=== PATIENT | male | born 1960 | race Two or more races ===

== ENCOUNTER 2018-09-11 10:42 | Emergency (ER) | payer OTHER ==
[~2018-09-11] VITALS: Ht 139.7 cm; Wt 84.4 kg
== END 2018-09-11 12:20 | disposition home or self-care (01) ==
LOC: ER 10:42
DX: T15.12XA Foreign body in conjunctival sac, left eye, initial encounter (principal)

== ENCOUNTER 2019-09-28 07:15 | Inpatient (IN) | payer OTHER ==
[~2019-09-28] VITALS: Ht 170.2 cm; Wt 111.1 kg
[2019-10-07] MEDS ORDERED: ELIQUIS2.5 MG PO (15:35)
[2019-10-07] MEDS ORDERED: INTEGRA F CAPS1 EACH PO (15:35)
== END 2019-10-07 21:38 | DRG 470 ==
LOC: ADM 07:15 → EDSTATUS 07:15 → SURH 10-05 05:45 → O/R 10-05 05:45 → SURH 10-05 18:34
PROVIDERS: ADMIT Orthopaedic Surgery; ATTEND Orthopaedic Surgery
PROC: 0MNP0ZZ Release Left Knee Bursa and Ligament, Open Approach (ICD-10-PCS; 2019-10-05)
PROC: 0SRD0J9 Replacement of Left Knee Joint with Synthetic Substitute, Cemented, Open Approach (ICD-10-PCS; principal; 2019-10-05 09:45)
DX: M17.12 Unilateral primary osteoarthritis, left knee (principal); M22.12 Recurrent subluxation of patella, left knee

== ENCOUNTER 2023-10-21 07:45 | Inpatient (IN) | payer OTHER ==
[~2023-10-21] VITALS: Ht 172.7 cm; Wt 103.4 kg
[~2023-10-21 07:45] MED LIST: ELIQUIS2.5 MG PO; INTEGRA F CAPS1 EACH PO
[2023-10-21] MEDS ORDERED: ZESTRIL20 MG PO (09:04)
[2023-10-21 09:16] LABS: URINE APPEARANCE Clear; URINE BILIRRUBIN Negative (NEGATIVE); URINE BLOOD Negative; URINE COLOR Orange; URINE GLUCOSE Negative (NEGATIVE); URINE KETONE Negative (NEGATIVE); URINE LEUKOCYTE Trace; URINE NITRATE Negative; URINE PROTEIN Negative (NEGATIVE)
[2023-10-21 09:21] LABS: URINE BACTERIA 36.5 uL (0.0-1933); URINE EPITHELIAL CELLS 2.1 uL (0.0-38.8)
[2023-10-21 09:28] LABS: HEMATOCRIT 45.8 % (39.0-48.0); HEMOGLOBIN 15.2 g/dL (13-16.00); MEAN CORPUSCULAR HEMOGLOBIN 33.5 pg (27.00-32.0); MEAN CORPUSCULAR HGB CONC 33.2 g/dl (32.0-36.0); RED BLOOD COUNT 4.53 M/uL (4.00-6.00); RED CELL DISTRIBUTION WIDTH 13.8 % (11.5-14.5)
[2023-10-21 09:30] LABS: URINE RBC 0.7 uL (0.0-20.8)
[2023-10-21 09:45] LABS: PLATELET COUNT 125 K/uL (150-450)
[2023-10-21 10:19] LABS: INR 0.99; PARTIAL THROMBOPLASTIN TIME 27.1 SECONDS (22.0-34.0); PROTHROMBIN TIME 10.8 SECONDS (9.0-11.5)
[2023-10-21 10:29] LABS: ALBUMIN 3.5 gm/dL (3.4-5.0); BILIRUBIN TOTAL 0.92 mg/dL (0.3-1.2); CALCIUM 9.2 mg/dL (8.5-10.1); CHOL HDL RATIO 2.8 (0-5.0); CREATININE SERUM 1.02 mg/dL (0.70-1.30); GLOBULINA 3.2 G/DL (2.4-3.5); POTASSIUM 4.23 mEq/L (3.5-5.1); TOTAL PROTEIN 6.7 gm/dL (6.4-8.2)
[2023-10-28] MEDS ORDERED: VANCOMYCIN HCL 1,000 MG VIAL IV ONE (12:30)
[2023-10-28] MEDS ORDERED: MORPHINE SULFATE 4 MG/ML VIAL IV ONE (12:30)
[2023-10-28] MEDS ORDERED: LIDOCAINE HCL 1%/EPINEPHRINE 20ML VIAL IJ ONE (12:30)
[2023-10-28] MEDS ORDERED: KETOROLAC TROMETHAMINE 60 MG VIAL IM ONE (12:30)
[2023-10-28] MEDS ORDERED: TRANEXAMIC ACID 100MG/1ML (1000MG) AMPUL IV ONE (12:30)
[2023-10-28] MEDS ORDERED: BUPIVACAINE HCL/PF 0.25% 30ML VIAL InF ONE (12:30)
[2023-10-28] MEDS ORDERED: SODIUM CHLORIDE 0.45 % 1,000 ML IV SCH (13:15)
[2023-10-28] MEDS ORDERED: ONDANSETRON HCL 2 MG/ML VIAL IV PRN (13:15)
[2023-10-28] MEDS ORDERED: OxyCODONE HCL 5 MG TABLET (ROXICODONE) PO PRN (13:15)
[2023-10-28] MEDS ORDERED: MORPHINE SULFATE 4 MG/ML CARTRIDGE IV PRN (13:15)
[2023-10-28] MEDS ORDERED: GABAPENTIN 300 MG CAPSULE PO SCH (17:00)
[2023-10-28 17:43] VITALS: BP 102/71; O2SAT 98
[2023-10-28] MEDS ORDERED: ACETAMINOPHEN 500 MG GEL..CAP PO SCH (18:00)
[2023-10-28] MEDS ORDERED: VANCOMYCIN HCL 1,000 MG in 0.9 % SODIUM CHLORIDE 250 ML IV SCH (21:00)
[2023-10-29 00:42] VITALS: BP 151/83; O2SAT 100
[2023-10-29 02:34] VITALS: BP 137/68
[2023-10-29] MEDS ORDERED: CIPRO500 MG PO (07:29)
[2023-10-29] MEDS ORDERED: PERCOCET 5-3251 EACH PO (07:29)
[2023-10-29] MEDS ORDERED: ELIQUIS2.5 MG PO (07:29)
[2023-10-29 07:45] LABS: HEMATOCRIT 42.3 % (39.0-48.0); HEMOGLOBIN 14.3 g/dL (13-16.00); MEAN CELL VOLUME 101.3 fL (80.0-100.00); MEAN CORPUSCULAR HEMOGLOBIN 34.2 pg (27.00-32.0); MEAN CORPUSCULAR HGB CONC 33.8 g/dl (32.0-36.0); RED BLOOD COUNT 4.18 M/uL (4.00-6.00); RED CELL DISTRIBUTION WIDTH 13.2 % (11.5-14.5)
[2023-10-29 08:21] LABS: PLATELET COUNT 106 K/uL (150-450)
[2023-10-29] MEDS ORDERED: SENNOSIDES 1 TAB TABLET PO SCH (09:00)
[2023-10-29] MEDS ORDERED: APIXABAN 2.5 MG TABLET PO SCH (09:00)
[2023-10-29 09:50] VITALS: BP 158/97; O2SAT 90
[2023-10-29 12:13] LABS: ALBUMIN 3.1 gm/dL (3.4-5.0); BILIRUBIN TOTAL 1.45 mg/dL (0.3-1.2); CALCIUM 8.3 mg/dL (8.5-10.1); CREATININE SERUM 1.18 mg/dL (0.70-1.30); GFR 62.55; GLOBULINA 3.1 G/DL (2.4-3.5); POTASSIUM 4.21 mEq/L (3.5-5.1); TOTAL PROTEIN 6.2 gm/dL (6.4-8.2)
[2023-10-29 16:17] VITALS: BP 113/65; O2SAT 98
[2023-10-29] MEDS ORDERED: Cyanocobalamin/Mecobalamin 1 TAB.SL SL SCH (17:00)
[2023-10-29] MEDS ORDERED: VITAMIN B COMPLEX 1 EACH PO SCH (17:00)
[2023-10-30 00:42] VITALS: BP 122/70; O2SAT 97
[2023-10-30 07:50] LABS: HEMATOCRIT 40.4 % (39.0-48.0); HEMOGLOBIN 13.8 g/dL (13-16.00); MEAN CELL VOLUME 98.6 fL (80.0-100.00); MEAN CORPUSCULAR HEMOGLOBIN 33.6 pg (27.00-32.0); MEAN CORPUSCULAR HGB CONC 34.1 g/dl (32.0-36.0); RED CELL DISTRIBUTION WIDTH 13.3 % (11.5-14.5)
[2023-10-30 08:00] VITALS: BP 128/86; O2SAT 97
[2023-10-30 08:32] LABS: PLATELET COUNT 97 K/uL (150-450)
[2023-10-30] MEDS ORDERED: LISINOPRIL 20 MG TABLET PO SCH (09:00)
[2023-10-30] MEDS ORDERED: IRON FUM,PS/FOLIC ACID/VITC/B3 1 CAP CAPSULE PO SCH (09:00)
[2023-10-30 16:28] VITALS: BP 108/68; O2SAT 98
== END 2023-10-30 16:55 | DRG 470 ==
LOC: O/R 10-28 05:29 → SURH 10-28 07:00
PROVIDERS: ADMIT Orthopaedic Surgery; ATTEND Orthopaedic Surgery
PROC: 0SUC07Z Supplement Right Knee Joint with Autologous Tissue Substitute, Open Approach (ICD-10-PCS; 2023-10-28)
PROC: 0SRC0J9 Replacement of Right Knee Joint with Synthetic Substitute, Cemented, Open Approach (ICD-10-PCS; principal; 2023-10-28 07:00)
DX: M17.11 Unilateral primary osteoarthritis, right knee (principal); D62 Acute posthemorrhagic anemia; M22.11 Recurrent subluxation of patella, right knee; F17.200 Nicotine dependence, unspecified, uncomplicated; F10.20 Alcohol dependence, uncomplicated